=== PATIENT | male | born 1965 | race Caucasian/White ===

== ENCOUNTER → 2022-02-11 12:08 | Outpatient (BNVA) | payer BC, SELFPAY | PROVIDERS: Visit Provider Psychiatry & Neurology Psychiatry | DX: F33.2 Major depressive disorder, recurrent severe without psychotic features (principal); F43.10 Post-traumatic stress disorder, unspecified; J45.909 Unspecified asthma, uncomplicated | CPT/HCPCS: 90833 ==

== ENCOUNTER → 2022-05-16 13:31 | Outpatient (BNVA) | payer BC, SELFPAY | PROVIDERS: PCP Internal Medicine; Visit Provider Psychiatry & Neurology Psychiatry | DX: Z13.89 Encounter for screening for other disorder (principal) ==

== ENCOUNTER → 2022-06-26 16:06 | Outpatient (BNVA) | payer BC, SELFPAY | PROVIDERS: PCP Internal Medicine; Visit Provider Psychiatry & Neurology Psychiatry | DX: Z13.89 Encounter for screening for other disorder (principal) ==

== ENCOUNTER → 2022-07-23 13:26 | Outpatient (BNVA) | payer BC, SELFPAY | PROVIDERS: PCP Internal Medicine; Visit Provider Psychiatry & Neurology Psychiatry | DX: Z13.89 Encounter for screening for other disorder (principal) ==

== ENCOUNTER → 2022-08-27 13:37 | Outpatient (BNVA) | payer BC, SELFPAY | PROVIDERS: PCP Internal Medicine; Visit Provider Psychiatry & Neurology Psychiatry | DX: Z13.89 Encounter for screening for other disorder (principal) ==

== ENCOUNTER 2022-11-24 11:07 | Outpatient (AMB) | payer BC, SELFPAY ==
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
== END 2022-11-24 11:54 | disposition home or self-care (01) ==
LOC: HO.HOP 11:07
PROVIDERS: PCP Internal Medicine; Visit Provider Psychiatry & Neurology Psychiatry
DX: F43.10 Post-traumatic stress disorder, unspecified (principal); F33.2 Major depressive disorder, recurrent severe without psychotic features
CPT/HCPCS: 90833; 99213

== ENCOUNTER → 2022-11-24 11:07 | Outpatient (BNVA) | payer BC, SELFPAY | PROVIDERS: PCP Internal Medicine; Visit Provider Psychiatry & Neurology Psychiatry ==

== ENCOUNTER 2023-03-03 11:10 | Outpatient (AMB) | payer BC, SELFPAY ==
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
== END 2023-03-03 11:34 | disposition home or self-care (01) ==
LOC: HO.HOP 11:10
PROVIDERS: PCP Internal Medicine; Visit Provider Psychiatry & Neurology Psychiatry
DX: F33.9 Major depressive disorder, recurrent, unspecified (principal); F43.10 Post-traumatic stress disorder, unspecified
CPT/HCPCS: 90833; 99213

== ENCOUNTER → 2023-03-03 11:10 | Outpatient (BNVA) | payer BC, SELFPAY | PROVIDERS: PCP Internal Medicine; Visit Provider Psychiatry & Neurology Psychiatry ==

== ENCOUNTER 2023-07-07 17:37 | Outpatient (AMB) | payer BC, SELFPAY ==
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
== END 2023-07-07 17:38 | disposition home or self-care (01) ==
LOC: HO.HOP 17:37
PROVIDERS: PCP Internal Medicine; Visit Provider Psychiatry & Neurology Psychiatry
DX: F33.9 Major depressive disorder, recurrent, unspecified (principal); F43.10 Post-traumatic stress disorder, unspecified
CPT/HCPCS: 90833; 99213

== ENCOUNTER → 2023-07-07 17:37 | Outpatient (BNVA) | payer BC, SELFPAY | PROVIDERS: PCP Internal Medicine; Visit Provider Psychiatry & Neurology Psychiatry | DX: F33.9 Major depressive disorder, recurrent, unspecified (principal); F43.10 Post-traumatic stress disorder, unspecified ==

== ENCOUNTER 2023-09-14 13:07 | Outpatient (AMB) | payer BC, SELFPAY ==
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
== END 2023-09-14 14:33 | disposition home or self-care (01) ==
LOC: HO.HOP 13:07
PROVIDERS: PCP Internal Medicine; Visit Provider Psychiatry & Neurology Psychiatry
DX: F43.10 Post-traumatic stress disorder, unspecified (principal)
CPT/HCPCS: 90833; 99213

== ENCOUNTER → 2023-09-14 13:07 | Outpatient (BNVA) | payer BC, SELFPAY | PROVIDERS: PCP Internal Medicine; Visit Provider Psychiatry & Neurology Psychiatry ==

== ENCOUNTER 2024-01-05 14:31 | Outpatient (AMB) | payer BC, SELFPAY ==
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
[2024-01-05 14:56] VITALS: BP 140/90; PULSE 80
== END 2024-01-05 15:14 | disposition home or self-care (01) ==
LOC: HO.HOP 14:31
PROVIDERS: PCP Internal Medicine; Visit Provider Psychiatry & Neurology Psychiatry
DX: F33.9 Major depressive disorder, recurrent, unspecified (principal); F43.10 Post-traumatic stress disorder, unspecified
CPT/HCPCS: 90833; 99213

== ENCOUNTER → 2024-01-05 14:31 | Outpatient (BNVA) | payer BC, SELFPAY | PROVIDERS: PCP Internal Medicine; Visit Provider Psychiatry & Neurology Psychiatry ==

== ENCOUNTER 2024-04-11 10:39 | Outpatient (AMB) | payer BC, SELFPAY ==
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
== END 2024-04-11 11:22 | disposition home or self-care (01) ==
LOC: HO.HOP 10:39
PROVIDERS: PCP Internal Medicine; Visit Provider Psychiatry & Neurology Psychiatry
DX: F33.2 Major depressive disorder, recurrent severe without psychotic features (principal); F43.10 Post-traumatic stress disorder, unspecified
CPT/HCPCS: 90833; 99213

== ENCOUNTER 2024-04-11 10:39 | Outpatient (REF) | payer BC, SELFPAY ==
[2024-04-11 13:36] LABS: Alanine Aminotransferase 42 U/L (0-40); Albumin Level 4.7 g/dL (3.5-5.0); Alkaline Phosphatase 50 U/L (39-117); Anion Gap 12 (12-20); Aspartate Amino Transferase 25 U/L (5-37); Bilirubin Total 0.7 mg/dL (0.0-1.0); Blood Urea Nitrogen 15 mg/dL (9-16); Calcium 9.8 mg/dL (8.4-10.2); Carbon Dioxide 30 mmol/L (22-29); Chloride 103 mmol/L (96-108); Estimated Glomerular Filt Rate > 60; Glucose Random 90 mg/dL (60-115); Sodium 141 mmol/L (135-145); Total Protein 7.7 g/dL (6.5-8.0)
[2024-04-11 13:56] LABS: TSH reflex Free T4 1.89 uIU/mL (0.32-4.0)
[2024-04-11 14:02] LABS: Folate 17.9 ng/mL (> or = 4.0); Vitamin B12 692 pg/mL (200-900)
[2024-04-12 14:24] LABS: Triiodothyronine T3 Free 3.6 pg/mL (2.3-4.2)
== END 2024-04-11 10:40 | disposition home or self-care (01) ==
LOC: HO.LAB 10:39
PROVIDERS: PCP Internal Medicine; Visit Provider Psychiatry & Neurology Psychiatry
DX: F33.2 Major depressive disorder, recurrent severe without psychotic features (principal); F43.10 Post-traumatic stress disorder, unspecified
CPT/HCPCS: 36415; 80053; 82607; 82746; 84443; 84481

== ENCOUNTER 2024-05-09 11:30 | Outpatient (AMB) | payer BC, SELFPAY ==
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
== END 2024-05-09 12:15 | disposition home or self-care (01) ==
LOC: HO.HOP 11:30
PROVIDERS: PCP Internal Medicine; Visit Provider Psychiatry & Neurology Psychiatry
DX: F43.10 Post-traumatic stress disorder, unspecified (principal); F33.9 Major depressive disorder, recurrent, unspecified
CPT/HCPCS: 90833; 99213

== ENCOUNTER 2024-06-21 11:31 | Outpatient (AMB) | payer BC, SELFPAY ==
--- OUTSIDE RECORDS SUMMARY | 2024-06-21 12:28 | XMS_ITS | Clinical Summary ---
Author Organization [facility] ity Address [address] [place] [address] Care Team Providers Care Lithoplate Maker Name Role Phone Unavailable Primary Care Provider Unavailabl e Social History Tobacco Use Types Packs/Day Years Used Date Smoking Tobacco: Never Assessed Sex and Gender Information Value Date Recorded Sex Assigned at Not on file Gender Identity Not on file Sexual Orientation Not on file Plan of Treatment Health Maintenance Due Date Last Done Comments DTaP,Tdap,and Td Vaccines (1 - Tdap) 09/23/1986 Hepatitis B Vaccines (1 of 3 - 19+ 3-dose series) 09/23/1986 Zoster Vaccines (1 of 2) 09/23/2017 Cholesterol Screening (Lipid Panel) 04/20/2022 Colorectal Cancer Screening: Colonoscopy 04/20/2022 Depression Screening 04/20/2022 HIV Screening 04/20/2022 Hepatitis C Screening 04/20/2022 Social Influencers of Health Screening 04/20/2022 COVID-19 Vaccine ( - 2023-2 5 season) 2024 Influenza Vaccine (#1) 2024 HIB Vaccines Aged Out No longer eligi ble based on patient's age to complete this topic HPV Vaccines Aged Out No longer eligi ble based on patient's age to complete this topic Hepatitis A Vaccines Aged Out No long er eligible based on patient's age to complete this topic IPV Vaccines Aged Out No longer eligi ble based on patient's age to complete this topic MMR Vaccines Aged Out No longer eligi ble based on patient's age to complete this topic Meningococcal ACWY Vaccine Aged Out N o longer eligible based on patient's age to complete this topic Pneumococcal Vaccine: Pediat rics (0 to 5 Years) and At-Risk Patients (6 to 64 Years) Aged Out No longer eligible b ased on patient's age to complete this topic RSV Immunization Patients Un john 20 months Aged Out No longer eligible b ased on patient's age to complete this topic Varicella Vaccines Aged Out No longer eligible based on patient's age to complete this topic
--- OUTSIDE RECORDS SUMMARY | 2024-06-21 12:28 | XMS_ITS | Clinical Summary ---
Author Organization [facility] Address [address] [place] [address] Care Team Providers Care Training Instructor Name Role Phone No, Pcp Primary Care Provider Unavailabl e Allergies No known active allergies Medications No known medications Encounters Date Type Department Care Team Description 06/02/2024 10:30 AM EST Evaluation [facility] [address] [place] [address] Esther Ruiz NP Physical exam, pre-employment (Primary Dx) from Last 3 Months Social History Tobacco Use Types Packs/Day Years Used Date Smoking Tobacco: Never Assessed Sex and Gender Information Value Date Recorded Sex Assigned at Not on file Legal Sex Male 10:02 AM EDT Gender Identity Not on file Sexual Orientation Not on file Plan of Treatment Health Maintenance Due Date Last Done Comments Cologuard 1967 Colon Cancer Screening 1967 Colonoscopy 1967 FOBT / Fit Test 1967 HIV Screening 1967 Hepatitis C Screening 1967 Sigmoidoscopy 1967 Hepatitis B Vaccines (1 of 3 - 19+ 3-dose series) 09/23/1986 DTaP,Tdap,and Td Vaccines (1 - Tdap) 09/23/1989 Zoster Vaccines (1 of 2) 09/23/2017 COVID-19 Vaccine ( - season) 2024 10/06/2023, 04/10/2021, 06/25/2020, Additional history exists Influenza Vaccine (#1) 2024 , 03/18/2022, 01/11/2021, Additional history exists Alcohol/Substance Use Screening 05/18/2024 Depression Screening and Follow-Up 05/18/2024 Social Drivers of Health Annual Screening 05/18/2024 RSV Vaccine (60+ years old and patients) (1 - 1-dose 75+ series) 09/23/2042 Pneumococcal Vaccine: Pediatric (0-5 Years) and At-Risk Patients (6-64 Years) Aged Out No longer eligible based on patient's age to complete this topic Insurance [facility] HMO/POS Care Teams Training Instructor Relationship Specialty Start Date End Date No, Pcp LOLA PCP - General 10/02/22
--- OUTSIDE RECORDS SUMMARY | 2024-06-21 12:28 | XMS_ITS | Referral Summary ---
Author Organization [facility] Address [address] [place] [address] Care Team Providers Care Film Waxer Name Role Phone No, Pcp Primary Care Provider Unavailabl e Encounters Date Type Department Care Team Description 06/02/2024 10:30 AM EST Evaluation [facility] [address] [place] [address] Esther Ruiz NP Physical exam, pre-employment (Primary Dx) from Last 3 Months Allergies No known active allergies Medications No known medications Social History Tobacco Use Types Packs/Day Years Used Date Smoking Tobacco: Never Assessed Sex and Gender Information Value Date Recorded Sex Assigned at Not on file Legal Sex Male 10:02 AM EDT Gender Identity Not on file Sexual Orientation Not on file Plan of Treatment [place] [id number] [facility] HMO/POS Care Teams Film Waxer Relationship Specialty Start Date End Date Morgan Arce MA PCP - General 10/02/22
--- OUTSIDE RECORDS SUMMARY | 2024-06-21 12:28 | XMS_ITS | Encounter Summary ---
Author Organization [facility] Address [address] [place] [address] Care Team Providers Care Auricular Therapist Name Role Phone No, Pcp Primary Care Provider Unavailabl e Encounter Details Date Type Department Care Team (Late st Contact Info) Description 06/02/2024 10:30 AM EST Evaluation [facility] [address] [place] [address] Esther Ruiz NP [address] [place] [id number] Physical exam, pre-employment (Primary Dx) Social History Tobacco Use Types Packs/Day Years Used Date Smoking Tobacco: Never Assessed Sex and Gender Information Value Date Recorded Sex Assigned at Not on file Legal Sex Male 10:02 AM EDT Gender Identity Not on file Sexual Orientation Not on file documented as of this encounter Progress Notes * Esther Ruiz NP - 06/02/2024 12:09 PM EST 58 y.o. year old arrived for [employer] physical exam today. Exam record scanned in the [facility]. Esther Ruiz NP 06/02/24 documented in this encounter Plan of Treatment Scheduled Orders Name Type Priority Associated Diagnoses Orde r Schedule X-Ray Chest 1 View Imaging Routine Physical exam, pre-employment Expected: 06/02/2024, Expires: 07/31/2025 documented as of this encounter Visit Diagnoses Diagnosis Physical exam, pre-employment- Primary Health examination of defined subpopulation documented in this encounter Care Teams Auricular Therapist Relationship Specialty Start Date End Date Morgan Arce MA PCP - General 10/02/22 documented as of this encounter
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
== END 2024-06-21 12:25 | disposition home or self-care (01) ==
LOC: HO.HOP 11:31
PROVIDERS: PCP Internal Medicine; Visit Provider Psychiatry & Neurology Psychiatry
DX: F33.1 Major depressive disorder, recurrent, moderate (principal)
CPT/HCPCS: 90833; 99213

== ENCOUNTER 2024-09-08 11:06 | Outpatient (AMB) | payer BC, SELFPAY ==
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
--- OUTSIDE RECORDS SUMMARY | 2024-09-08 13:07 | XMS_ITS | Clinical Summary ---
Author Organization [facility] Address [address] [place] [address] Care Team Providers Care Early Childhood Education Instructor Name Role Phone No, Pcp Primary [...] DTaP,Tdap,and Td Vaccines (1 - Tdap) 09/23/1989 Pneumococcal Vaccine: 50+ Ye ars (1 of 1 - PCV) 09/23/2017 Zoster Vaccines (1 of 2) 09/23/2017 COVID-19 Vaccine (5 - 2023-2 5 season) 2024 10/06/2023, 04/10/2021, 06/25/2020, Additional history exists Alcohol/Substance Use Screening 05/18/2024 Depression Screening and Follow-Up 05/18/2024 Social Drivers of Health Mindy ual Screening 05/18/2024 Influenza Vaccine (Season Ended) 2025 02/06/2023, 03/18/2022, 01/11/2021, Additional history exists RSV Vaccine (60+ years old a nd patients) (1 - 1-dose 75+ series) 09/23/2042 Insurance [facility] HMO/POS Care Teams Early Childhood Education Instructor Relationship Specialty Start Date End Date No, Pcp LOLA PCP - General 10/02/22
--- OUTSIDE RECORDS SUMMARY | 2024-09-08 13:07 | XMS_ITS | Referral Summary ---
Author Organization [facility] Address [address] [place] [address] Care Team Providers Care Sr. Manager Name Role Phone No, Pcp Primary Care [...] Plan of Treatment [place] [id number] [facility] HMO/POS Care Teams Sr. Manager Relationship Specialty Start Date End Date No, Pcp LOLA PCP - General 10/02/22
== END 2024-09-08 11:45 | disposition home or self-care (01) ==
LOC: HO.HOP 11:06
PROVIDERS: PCP Internal Medicine; Visit Provider Psychiatry & Neurology Psychiatry
DX: F43.10 Post-traumatic stress disorder, unspecified (principal); F33.9 Major depressive disorder, recurrent, unspecified
CPT/HCPCS: 99214

== ENCOUNTER → 2024-09-08 11:06 | Outpatient (BNVA) | payer BC, SELFPAY | PROVIDERS: PCP Internal Medicine; Visit Provider Psychiatry & Neurology Psychiatry ==

== ENCOUNTER 2024-12-01 10:27 | Outpatient (AMB) | payer BC, SELFPAY ==
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
--- OUTSIDE RECORDS SUMMARY | 2024-12-01 10:58 | XMS_ITS | Patient Health Record ---
Author Organization [facility] Address [address] [place] [address] Care Team Providers Care Cable Assembler And Swager Name Role Phone Kyrie Quintana MD Primary Care Provider Unavailab andrew Calli Trotter Unavailable [phone] Reason For Referral No Information Medications Medication SIG (Take, Route, Frequency, Duration) Notes Start Date End Date Status Lexapro Active Wellbutrin Active Flonase Active AndroGel Active Social History Tobacco use other than smoking: Question Answer Notes Are you an other tobacco user? No Problems No Known Problems Plan Of Treatment Pending Test Test Name Order Date , D7010-[id number]/INJECT, JOINT/BURSA 0 09/10/2015 Insurance Providers Payer Name Payer Address Payer Phone Subscriber Number Group Number Insured Name Patient Relationship to Insured Coverage Start Date Coverage End Date [facility] [id number] [place] [address] [id number] Larry Peterson Self - patient is the insured Medical (General) History Medical History History ICD Code asthma Depression Reflux Chicken pox Surgical History Surgery Date(Month/Year) rotator cuff tear repair 2008
--- OUTSIDE RECORDS SUMMARY | 2024-12-01 10:58 | XMS_ITS | Clinical Summary ---
Author Organization [address] [facility] Address [address] [place] [address] Phone Care Team Providers Care Educational Institution President Name Role Phone Kyrie Quintana MD Primary Care Provider [phone] Allergies No known active allergies Medications montelukast (SINGULAIR) 10 mg tablet Take 1 tablet (10 mg total) by mouth 1 (one) time each day in the evening. 30 tablet 3 5 Active budesonide-formo teroL (SYMBICORT) 160-4.5 mcg/actuation inhalerIndicatio ns:Moderate asthma, unspecified whether complicated, unspecified whether persistent,Morbi d obesity due to excess calories ([facility] V24, [facility] V28),Seasonal allergic rhinitis due to pollen,Primary hypertension,Gas troesophageal reflux disease without esophagitis Inhale 2 puffs by mouth 2 (two) times a day. 1 each 3 5 Active montelukast (SINGULAIR) 10 mg tablet Take 1 tablet (10 mg total) by mouth 1 (one) time each day in the evening. 5 11/08/19 25 Discontinu ed(Reorder ) budesonide-formo teroL (SYMBICORT) 160-4.5 mcg/actuation inhaler Inhale 2 puffs by mouth 2 (two) times a day. 5 11/08/19 25 Discontinu ed(Reorder ) budesonide-formo teroL (SYMBICORT) 160-4.5 mcg/actuation inhaler Inhale 2 puffs by mouth 2 (two) times a day. 1 each 3 5 11/18/19 25 Discontinu ed(Reorder ) Encounters Date Type Department Care Team Description 11/17/2024 8:00 AM EDT [facility] [address] [phone] David Meehan MD Moderate asthma, unspecified whether complicated, unspecified whether persistent (Primary Dx); Morbid obesity due to excess calories ([facility] V24, [facility] V28); Seasonal allergic rhinitis due to pollen; Primary hypertension; Gastroesophageal reflux disease without esophagitis from Last 3 Months Social History Tobacco Use Types Packs/Day Years Used Date Smoking Tobacco: Never Passive Smoke Exposure: Never Smokeless Tobacco: Never Sex and Gender Information Value Date Recorded Sex Assigned at Not on file Legal Sex Male 2:56 AM EST Gender Identity Not on file Sexual Orientation Not on file Obstetrics History Last Filed Vital Signs Vital Sign Reading Time Taken Comments Blood Pressure 134/89 11/17/2024 8:17 AM EDT Pulse 71 11/17/2024 8:17 AM EDT Temperature 36.1 C (97 F) 11/17/2024 8:17 AM EDT Respiratory Rate 19 11/17/2024 8:17 AM EDT Oxygen Saturation 97% 11/17/2024 8:17 AM EDT Inhaled Oxygen Concentration - - Weight 99.4 kg (219 lb 3.2 oz) 11/17/2024 8:17 A M EDT Height 175.3 cm (5' 9 ) 11/17/2024 8:17 AM EDT Body Mass Index 32.37 11/17/2024 8:17 AM EDT Plan of Treatment Upcoming Encounters Date Type Department Care Team (Late st Contact Info) Description 02/22/2025 9:30 AM EDT [facility] [address] [phone] 02/22/2025 10:15 AM EDT Office Visit [address] [phone] David Meehan MD [address] [phone] Health Maintenance Due Date Last Done Comments DTaP,Tdap,and Td Vaccines (1 - Tdap) 09/23/1986 Hepatitis B Vaccines (1 of 3 - 19+ 3-dose series) 09/23/1986 Pneumococcal Vaccine: 50+ Years (1 of 2 - PCV) 09/23/1986 Zoster Vaccines (1 of 2) 09/23/2017 COVID-19 Vaccine (5 - 2023- season) 2024 10/06/2023, 04/10/2021, 06/25/2020, Additional history exists Cholesterol Screening (Lipid Panel) 11/04/2024 Colorectal Cancer Screening: Colonoscopy 11/04/2024 Depression Screening 11/04/2024 HIV Screening 11/04/2024 Hepatitis C Screening 11/04/2024 Social Influencers of Health Screening 11/04/2024 Hypertension/CHF/CAD Annual BMP Blood Test 11/17/2024 Influenza Vaccine (#1) 2025 3, 03/18/2022, 01/11/2021, Additional history exists HIB Vaccines Aged Out No longer eligi [...] patient's age to complete this topic Meningococcal B Vaccine Aged Out No l onger eligible based on patient's age to complete this topic RSV Immunization Patients Under 20 months Aged Out No longer eligible based on patient's age to complete this topic Varicella Vaccines Aged Out No longer eligible based on patient's age to complete this topic Insurance [facility] Care Teams Educational Institution President Relationship Specialty Start Date End Date Kyrie Quintana MD [address] [place] [id number] PCP - General Internal Medicine 11/11/24
--- OUTSIDE RECORDS SUMMARY | 2024-12-01 10:58 | XMS_ITS | Referral Summary ---
Author Organization [facility] Address [address] [place] [address] Care Team Providers Care Directory Assistance Operator Name Role Phone No, Pcp Primary Care [...] Treatment Not [id number] [facility] HMO/POS Care Teams Directory Assistance Operator Relationship Specialty Start Date End Date No, Pcp LOLA PCP - General 10/02/22
== END 2024-12-01 10:55 | disposition home or self-care (01) ==
LOC: HO.HOP 10:27
PROVIDERS: PCP Internal Medicine; Visit Provider Psychiatry & Neurology Psychiatry
DX: F33.9 Major depressive disorder, recurrent, unspecified (principal); F43.10 Post-traumatic stress disorder, unspecified
CPT/HCPCS: 90833; 99213